=== PATIENT | male | born 1990 | race Asian ===

== ENCOUNTER 2019-04-19 08:54 | Outpatient (CLI) | payer MEDICAID ==
[~2019-04-19 08:54] MED LIST: NAPR-729 PO; NO HOME MEDS
== END 2019-04-19 23:59 | disposition home or self-care (01) ==
LOC: RAD 08:54
PROVIDERS: ATTEND Family Medicine
DX: R94.01 Abnormal electroencephalogram [EEG] (principal); R56.9 Unspecified convulsions; F17.200 Nicotine dependence, unspecified, uncomplicated; Z87.820 Personal history of traumatic brain injury
CPT/HCPCS: 95816